=== PATIENT | male | born 1995 | race Caucasian/White ===

== ENCOUNTER 2022-01-03 19:31 | Inpatient (IN) | payer OTHER ==
[~2022-01-03 19:31] MED LIST: Iopamidol-370 76% 500 ML 1 ML ONE
[2022-01-03 19:57] LABS: #Eosinphils 0.2 thou/uL (0.0-0.7); #Lymphocytes 3.2 thou/uL (1.20-3.40); #Monocytes 0.9 thou/uL (0.11-0.59); #Neutrophils 14.9 thou/uL (1.40-6.50); %Basophils 0.2 % (0.0-1.0); %Eosinophils 1.2 % (0.0-10.0); %Lymphocytes 16.8 % (21.0-51.0); %Monocytes 4.6 % (0.0-10.0); %Neutrophils 77.2 % (42.0-75.0); Hemoglobin 12.9 g/dL (14.0-18.0); Mean Corpuscular HGB CONC 33.4 g/dL (32.0-36.0); Mean Corpuscular Hemoglobin 21.5 pg (27.0-31.0); Mean Corpuscular Volume 64.4 fL (78.0-98.0); Mean Platelet Volume 8.1 fL (7.4-10.4); Platelet Count 419 thou/uL (130-400); RBC Distribution Width 14.2 % (11.5-14.5); Red Blood Cell (RBC) Count 5.99 mill/uL (4.70-6.10); White Blood Cell (WBC) Count 19.2 thou/uL (4.8-10.8)
[2022-01-03] MEDS ORDERED: Morphine 2 MG/ML VIAL SLOW IVP PRN (20:04)
[2022-01-03] MEDS ORDERED: Promethazine HCl 25 MG/ML VIAL IM PRN (20:04)
[2022-01-03] MEDS ORDERED: traMADol HCl 50 MG TAB PO PRN ×3 (20:04→20:58)
[2022-01-03] MEDS ORDERED: Ondansetron ODT 4 MG TAB PO PRN (20:04)
[2022-01-03 20:06] LABS: INR-International Normal Ratio 1.1; Prothrombin Time 14.2 sec (12.0-14.7)
[2022-01-03] MEDS ORDERED: hydrALAZINE 20 MG/ML VIAL SLOW IVP PRN (20:06)
[2022-01-03 20:07] LABS: Acetaminophen Less than 10.0 mcg/mL (10.0-30.0); Alcohol 243 mg/dL (Less than 10); PTT 28.7 sec (22.9-36.1); Salicylate Less than 8.0 mg/dL (15.0-30.0)
[2022-01-03 20:08] LABS: ALT (SGPT) 50 U/L (8-55); AST (SGOT) 63 U/L (5-34); Albumin 4.1 g/dL (3.5-5.0); Alkaline Phosphatase 78 U/L (40-110); Anion Gap 20 mmol/L (10-20); BUN (Urea Nitrogen) 9 mg/dL (8.9-20.6); Bilirubin, Total 0.5 mg/dL (0.2-1.2); Calc. Creatinine Clearance 0 mL/min (70-130); Calcium 8.2 mg/dL (7.8-10.44); Carbon Dioxide 19 mmol/L (22-29); Chloride 104 mmol/L (98-107); Globulin 3.1 g/dL (2.4-3.5); Glucose 118 mg/dL (70-105); Protein, Total 7.2 g/dL (6.0-8.3); Sodium 139 mmol/L (136-145)
[2022-01-03] MEDS ORDERED: Boostrix 0.5 ML (Tdap) VIAL ONE (20:15)
[2022-01-03] MEDS ORDERED: Sodium Chloride 0.9% 1,000 ML IV SCH ×2 (20:15)
[2022-01-03 20:25] LABS: MDiff Complete? YES; Microcytosis SLIGHT = 6-15 cells (100X) (0-5/hpf); Ovalocytes SLIGHT = 2-5 cells (100X) (0-1/hpf); Platelet Morphology Comment Appears Increased; Polychromasia SLIGHT = 2-3 cells (100X) (0-2/hpf); Reflex for Review?? YES; Target Cells SLIGHT = 2-5 cells (100X) (0-1/hpf)
[2022-01-03] MEDS ORDERED: Senokot S 8.6-50 MG TAB PO SCH (21:00)
[2022-01-03] MEDS ORDERED: Ketorolac Tromethamine 30 MG/ML VIAL IVP SCH (21:00)
[2022-01-03] MEDS: Famotidine/PF 20 mg/2ml Vial SLOW IVP SCH (21:00)
[2022-01-03] MEDS ORDERED: Ketorolac Tromethamine 30 MG/ML VIAL IVP PRN (21:00)
[2022-01-03] MEDS: Gabapentin 300 MG CAP PO SCH (21:00)
[2022-01-03] MEDS: Senokot S 8.6-50 MG TAB PO SCH (21:00)
[2022-01-03] MEDS ORDERED: Fentanyl 100 MCG/2 ML VIAL ONE (21:17)
[2022-01-03 21:25] LABS: Bacteria/HPF None Seen HPF (None Seen); Bilirubin Negative (Negative); Blood, Urine 2+ (Negative); Clarity Clear (Clear); Glucose, Urine (Dipstick) Normal (Negative); Ketone, Urine Negative (Negative); Leukocyte Negative Leu/uL (Negative); Nitrite Negative (Negative); Protein, Urine (Dipstick) Negative (Neg-Trace); RBC/HPF 0-3 HPF (0-3); Specific Gravity, Urine 1.031 (1.002-1.036); Squamous Epithelial 0-3 HPF (0-3); Urobilinogen Normal mg/dL (Less than 2); WBC/HPF 0-3 HPF (0-3); pH, Urine 5.5 (5.0-9.0)
[2022-01-03 22:09] LABS: SARS-CoV-2 NAA Rapid Test Not Detected (NotDetected)
[2022-01-03] MEDS ORDERED: Ketorolac Tromethamine 30 MG/ML VIAL ONE (22:30)
[2022-01-04 00:02] LABS: #Lymphocytes 1.9 thou/uL (1.20-3.40); #Monocytes 1.8 thou/uL (0.11-0.59); #Neutrophils 15.5 thou/uL (1.40-6.50); %Basophils 0.1 % (0.0-1.0); %Eosinophils 0.1 % (0.0-10.0); %Lymphocytes 9.8 % (21.0-51.0); %Monocytes 9.2 % (0.0-10.0); %Neutrophils 80.8 % (42.0-75.0); Mean Corpuscular HGB CONC 33.4 g/dL (32.0-36.0); Mean Corpuscular Hemoglobin 22.8 pg (27.0-31.0); Mean Corpuscular Volume 68.2 fL (78.0-98.0); Mean Platelet Volume 8.2 fL (7.4-10.4); Platelet Count 322 thou/uL (130-400); RBC Distribution Width 18.8 % (11.5-14.5); Red Blood Cell (RBC) Count 5.71 mill/uL (4.70-6.10); White Blood Cell (WBC) Count 19.2 thou/uL (4.8-10.8)
[2022-01-04] MEDS: Cyclobenzaprine 10 MG TAB PO PRN ×3 (00:14→20:28)
[2022-01-04] MEDS: Acetaminophen 500 MG TAB PO SCH ×5 (00:14→23:20)
[2022-01-04] MEDS: traMADol HCl 50 MG TAB PO SCH ×5 (00:18→23:19)
[2022-01-04] MEDS: Sodium Chloride 0.9% 1,000 ML IV SCH ×4 (00:20→15:24)
[2022-01-04 00:33] LABS: Lactic Acid 3.1 mmol/L (0.5-2.2)
[2022-01-04 04:12] VITALS: BMI 38.4
[2022-01-04 06:34] LABS: Bacteria/HPF None Seen HPF (None Seen); Bilirubin Negative (Negative); Blood, Urine 1+ (Negative); Clarity Clear (Clear); Glucose, Urine (Dipstick) Normal (Negative); Ketone, Urine 20 mg/dL (Negative); Leukocyte Negative Leu/uL (Negative); Nitrite Negative (Negative); Protein, Urine (Dipstick) Negative (Neg-Trace); RBC/HPF 0-3 HPF (0-3); Specific Gravity, Urine 1.046 (1.002-1.036); Squamous Epithelial None Seen HPF (0-3); Urobilinogen Normal mg/dL (Less than 2); WBC/HPF 0-3 HPF (0-3)
[2022-01-04 06:39] LABS: Urine Culture Reflex No No
[2022-01-04 07:06] LABS: #Lymphocytes 0.9 thou/uL (1.20-3.40); #Monocytes 1.4 thou/uL (0.11-0.59); #Neutrophils 7.8 thou/uL (1.40-6.50); %Basophils 0.2 % (0.0-1.0); %Eosinophils 0.3 % (0.0-10.0); %Lymphocytes 8.7 % (21.0-51.0); %Monocytes 14.1 % (0.0-10.0); %Neutrophils 76.7 % (42.0-75.0); Hemoglobin 11.7 g/dL (14.0-18.0); Mean Corpuscular HGB CONC 33.7 g/dL (32.0-36.0); Mean Corpuscular Hemoglobin 22.8 pg (27.0-31.0); Mean Corpuscular Volume 67.5 fL (78.0-98.0); Mean Platelet Volume 8.4 fL (7.4-10.4); Platelet Count 301 thou/uL (130-400); Red Blood Cell (RBC) Count 5.13 mill/uL (4.70-6.10); White Blood Cell (WBC) Count 10.2 thou/uL (4.8-10.8)
[2022-01-04 07:34] LABS: Lactic Acid 1.1 mmol/L (0.5-2.2)
[2022-01-04 07:39] LABS: Anion Gap 15 mmol/L (10-20); BUN (Urea Nitrogen) 9 mg/dL (8.9-20.6); Calc. Creatinine Clearance 259 mL/min (70-130); Calcium 7.6 mg/dL (7.8-10.44); Carbon Dioxide 19 mmol/L (22-29); Chloride 107 mmol/L (98-107); Glucose 124 mg/dL (70-105); Magnesium 1.6 mg/dL (1.6-2.6); Phosphorus 3.8 mg/dL (2.3-4.7); Potassium 4.1 mmol/L (3.5-5.1); Sodium 137 mmol/L (136-145)
[2022-01-04] MEDS: Gabapentin 300 MG CAP PO SCH ×3 (08:58→20:27)
[2022-01-04] MEDS: Famotidine/PF 20 mg/2ml Vial SLOW IVP SCH ×2 (08:58→20:27)
[2022-01-04] MEDS: Senokot S 8.6-50 MG TAB PO SCH ×2 (08:59→20:27)
[2022-01-04] MEDS: Multivitamin W/ Minerals 1 TAB PO SCH (08:59)
[2022-01-04] MEDS: Polyethylene Glycol 3350 17 GM Packet PO SCH (09:00)
[2022-01-04] MEDS ORDERED: fentaNYL Citrate/PF 100 MCG/2 ML SYRINGE ONE (09:32)
[2022-01-04] MEDS ORDERED: Midazolam HCl 2 mg/2 ml Vial ONE (09:33)
[2022-01-04] MEDS ORDERED: Clindamycin/D5W 900 mg/50 ml Premix Bag ONE (10:20)
[2022-01-04] MEDS ORDERED: Levofloxacin 500 mg/D5W 100 ml Premix Bag ONE (10:20)
[2022-01-04] MEDS ORDERED: Vecuronium 10 MG VIAL ONE (10:42)
[2022-01-04] MEDS ORDERED: Rocuronium Bromide 10 MG/ML (10ML VIAL) ONE (10:42)
[2022-01-04] MEDS ORDERED: Dexamethasone 20 MG/5 ML VIAL ONE (10:42)
[2022-01-04] MEDS ORDERED: Lidocaine 1% PF 5 ML VIAL ONE (10:42)
[2022-01-04] MEDS ORDERED: PROPOFOL 200 MG/20 ML VIAL ONE (10:42)
[2022-01-04] MEDS ORDERED: Ondansetron PF 4 MG/2 ML Vial ONE (10:42)
[2022-01-04] MEDS ORDERED: Thrombin 5000 UNITS/5 ML VIAL ONE (11:28)
[2022-01-04] MEDS ORDERED: HYDROmorphone 2 MG/ML VIAL ONE (11:51)
[2022-01-04] MEDS ORDERED: SUGAMMADEX SODIUM 200 MG/2 ML VIAL ONE (13:12)
[2022-01-04] MEDS ORDERED: Acetaminophen/Codeine 30-300mg Tablet PO PRN (14:27)
[2022-01-04] MEDS ORDERED: HYDROcodone/Acetaminophen 7.5/325 mg Tablet PO PRN (14:27)
[2022-01-04] MEDS ORDERED: Morphine 2 MG/ML VIAL SLOW IVP PRN (14:27)
[2022-01-04] MEDS ORDERED: tiZANidine HCl 4 MG TAB PO PRN (14:29)
[2022-01-04] MEDS ORDERED: HYDROmorphone 2 MG/ML VIAL SLOW IVP PRN (14:35)
[2022-01-04] MEDS ORDERED: Promethazine HCl 25 MG/ML VIAL IVPB PRN (14:35)
[2022-01-04] MEDS ORDERED: Ondansetron HCl/PF 4 MG/2 ML Vial IVP PRN (14:35)
[2022-01-04] MEDS ORDERED: Promethazine HCl 25 MG/ML VIAL IM PRN (14:35)
[2022-01-04] MEDS: Clindamycin/D5W 900 MG in Premix Bag 1 BAG IVPB SCH ×2 (15:22→23:15)
[2022-01-04] MEDS ORDERED: Benzocaine 20% Spray 60 ML CAN PO SCH (19:00)
[2022-01-05] MEDS: traMADol HCl 50 MG TAB PO SCH ×4 (05:13→23:39)
[2022-01-05] MEDS: Acetaminophen 500 MG TAB PO SCH ×4 (05:13→23:39)
[2022-01-05] MEDS: Clindamycin/D5W 900 MG in Premix Bag 1 BAG IVPB SCH ×3 (05:21→23:39)
[2022-01-05 06:49] LABS: #Monocytes 0.7 thou/uL (0.11-0.59); #Neutrophils 10.1 thou/uL (1.40-6.50); %Basophils 0.1 % (0.0-1.0); %Eosinophils 0.1 % (0.0-10.0); %Lymphocytes 8.3 % (21.0-51.0); %Monocytes 6.1 % (0.0-10.0); %Neutrophils 85.4 % (42.0-75.0); Hemoglobin 9.3 g/dL (14.0-18.0); Mean Corpuscular HGB CONC 33.2 g/dL (32.0-36.0); Mean Corpuscular Volume 69.2 fL (78.0-98.0); Mean Platelet Volume 8.1 fL (7.4-10.4); Platelet Count 249 thou/uL (130-400); RBC Distribution Width 17.5 % (11.5-14.5); Red Blood Cell (RBC) Count 4.03 mill/uL (4.70-6.10); White Blood Cell (WBC) Count 11.8 thou/uL (4.8-10.8)
[2022-01-05 07:12] LABS: Anion Gap 14 mmol/L (10-20); BUN (Urea Nitrogen) 8 mg/dL (8.9-20.6); Calc. Creatinine Clearance 263 mL/min (70-130); Calcium 7.2 mg/dL (7.8-10.44); Carbon Dioxide 22 mmol/L (22-29); Chloride 105 mmol/L (98-107); Glucose 156 mg/dL (70-105); Potassium 4.2 mmol/L (3.5-5.1); Sodium 137 mmol/L (136-145)
[2022-01-05] MEDS: Sodium Chloride 0.9% 1,000 ML IV SCH (07:57)
[2022-01-05] MEDS: Enoxaparin Sodium 40 MG/0.4 ML SYRINGE SC SCH (09:18)
[2022-01-05] MEDS: Polyethylene Glycol 3350 17 GM Packet PO SCH (09:19)
[2022-01-05] MEDS: Gabapentin 300 MG CAP PO SCH ×3 (09:19→20:48)
[2022-01-05] MEDS: Multivitamin W/ Minerals 1 TAB PO SCH (09:20)
[2022-01-05] MEDS: Senokot S 8.6-50 MG TAB PO SCH ×2 (09:20→20:49)
[2022-01-05] MEDS: Famotidine/PF 20 mg/2ml Vial SLOW IVP SCH ×2 (09:20→20:48)
[2022-01-05] MEDS: Cyclobenzaprine 10 MG TAB PO PRN (09:23)
[2022-01-05] MEDS ORDERED: Cyclobenzaprine 10 MG TAB PO PRN (13:50)
[2022-01-05] MEDS: Ketorolac Tromethamine 30 MG/ML VIAL IVP SCH ×2 (15:09→20:48)
[2022-01-06] MEDS: Ketorolac Tromethamine 30 MG/ML VIAL IVP SCH ×2 (01:54→08:54)
[2022-01-06] MEDS: traMADol HCl 50 MG TAB PO SCH ×3 (05:31→18:20)
[2022-01-06] MEDS: Clindamycin/D5W 900 MG in Premix Bag 1 BAG IVPB SCH ×3 (05:31→21:58)
[2022-01-06] MEDS: Acetaminophen 500 MG TAB PO SCH ×3 (05:31→18:20)
[2022-01-06] MEDS: Multivitamin W/ Minerals 1 TAB PO SCH (08:52)
[2022-01-06] MEDS: Senokot S 8.6-50 MG TAB PO SCH ×2 (08:52→20:54)
[2022-01-06] MEDS: Polyethylene Glycol 3350 17 GM Packet PO SCH (08:52)
[2022-01-06] MEDS: Gabapentin 300 MG CAP PO SCH ×3 (08:52→21:57)
[2022-01-06] MEDS: Famotidine/PF 20 mg/2ml Vial SLOW IVP SCH (08:52)
[2022-01-06] MEDS: Enoxaparin Sodium 40 MG/0.4 ML SYRINGE SC SCH (08:52)
[2022-01-06] MEDS: Ibuprofen 600 MG TAB PO SCH ×2 (14:05→21:56)
[2022-01-06] MEDS: Famotidine 20 MG TAB PO SCH (21:56)
[2022-01-07] MEDS: traMADol HCl 50 MG TAB PO SCH ×5 (00:01→19:41)
[2022-01-07] MEDS: Acetaminophen 500 MG TAB PO SCH ×5 (00:02→19:41)
[2022-01-07] MEDS ORDERED: Sodium Chloride 0.9% 1,000 ML IV SCH (01:00)
[2022-01-07] MEDS: Ibuprofen 600 MG TAB PO SCH ×2 (06:44→15:29)
[2022-01-07] MEDS: Clindamycin/D5W 900 MG in Premix Bag 1 BAG IVPB SCH (06:48)
[2022-01-07] MEDS: Senokot S 8.6-50 MG TAB PO SCH (09:17)
[2022-01-07] MEDS: Multivitamin W/ Minerals 1 TAB PO SCH (09:17)
[2022-01-07] MEDS: Famotidine 20 MG TAB PO SCH (09:17)
[2022-01-07] MEDS: Polyethylene Glycol 3350 17 GM Packet PO SCH (09:17)
[2022-01-07] MEDS: Enoxaparin Sodium 40 MG/0.4 ML SYRINGE SC SCH (09:17)
[2022-01-07] MEDS: Gabapentin 300 MG CAP PO SCH ×2 (09:17→15:33)
[2022-01-07] MEDS: Ondansetron PF 4 MG/2 ML Vial IVP PRN ×2 (12:49→19:41)
[2022-01-07] MEDS ORDERED: Polyethylene Glycol 3350 17 GM Packet PO PRN (13:03)
[2022-01-07] MEDS ORDERED: Bisacodyl 10 MG SUPP PR PRN (13:03)
[2022-01-07] MEDS ORDERED: Bisacodyl 5 MG TAB PO PRN (13:03)
[2022-01-07 19:56] VITALS: BP 144/85; TEMP 98.2
[2022-01-07] MEDS ORDERED: Docusate 100 MG CAP PO SCH (21:00)
== END 2022-01-07 08:45 | DRG 460 ==
LOC: ERS 19:31 → SURG A 20:19
PROVIDERS: ADMIT Specialist; ATTEND Surgery
PROC: 30233N1 Transfusion of Nonautologous Red Blood Cells into Peripheral Vein, Percutaneous Approach (ICD-10-PCS; 2022-01-03)
PROC: 0SG1071 Fusion of 2 or more Lumbar Vertebral Joints with Autologous Tissue Substitute, Posterior Approach, Posterior Column, Open Approach (ICD-10-PCS; principal; 2022-01-04)
PROC: 0QS004Z Reposition Lumbar Vertebra with Internal Fixation Device, Open Approach (ICD-10-PCS; 2022-01-04)
DX: S32.021A Stable burst fracture of second lumbar vertebra, initial encounter for closed fracture (principal); S22.42XA Multiple fractures of ribs, left side, initial encounter for closed fracture; S32.501A Unspecified fracture of right pubis, initial encounter for closed fracture; D62 Acute posthemorrhagic anemia; E87.2 Acidosis; S09.90XA Unspecified injury of head, initial encounter; F10.129 Alcohol abuse with intoxication, unspecified; E86.0 Dehydration; Z20.822 Contact with and (suspected) exposure to COVID-19; I95.9 Hypotension, unspecified; V59.9XXA Occupant (driver) (passenger) of pick-up truck or van injured in unspecified traffic accident, initial encounter; Y92.89 Other specified places as the place of occurrence of the external cause; Z90.49 Acquired absence of other specified parts of digestive tract
CPT/HCPCS: 36415; 36430; 51702; 70450; 71260; 72125; 74177; 76000; 80048; 80053; 80307; 81001; 81003; 81015; 83605; 83735; 84100; 85025; 85060; 85610; 85730; 86850; 86900; 86901; 90715; 93005; 96374; 96375; C1713; C1768; G0390; J1100; J1170; J1650; J1885; J1956; J2250; J2270; J2405; J2704; J3010; J3370; J3490; J7050; P9016; Q9967; S0028; U0002

== ENCOUNTER 2022-02-17 09:01 | Outpatient (CLI) | payer OTHER | END 2022-02-17 09:02 | disposition home or self-care (01) | LOC: TBSIIMAG 09:01 | PROVIDERS: ATTEND Physician Assistant | DX: M48.56XA Collapsed vertebra, not elsewhere classified, lumbar region, initial encounter for fracture (principal) | CPT/HCPCS: 72040; 72100 ==